=== PATIENT | female | born 1960 | race Caucasian/White ===

== ENCOUNTER 2019-12-21 15:10 | Outpatient (CLI) | payer MEDICAID | END 2019-12-21 15:11 | disposition critical access hospital (66) | LOC: EMS 15:10 | PROVIDERS: ATTEND Surgery | DX: R10.10 Upper abdominal pain, unspecified (principal); R06.00 Dyspnea, unspecified | CPT/HCPCS: A0425; A0427; A0999 ==

== ENCOUNTER 2019-12-21 15:32 | Emergency (ER) | payer MEDICAID ==
--- NOTE | 2019-12-21 15:43 | ED Physician Documentation ---
PD HPI CHEST PAIN - Stated complaint Stated Complaint: CHEST PAIN - History obtained from History obtained from: Patient - History of Present Illness Timing - onset: Enter time (0), Today Timing - onset during: Rest Timing - duration: Hours (2) Timing - details: Abrupt onset, Still present Pain level max: 10 Pain level now: 2 Quality: Pressure, Tightness, Sharp Location: Substernal, Left chest Radiation: Left upper extremity Improved by: Nitro Worsened by: Exertion, Movement, Palpation Associated symptoms: Shortness of air Similar symptoms before: Diagnosis (CAD) Recently seen: Not recently seen - Additional information Additional information: 59 y/o female with history of CAD with stents in 2016 and 2018. Takes nitro for severe pain with relief. Today while getting ready to eat lunch she developed chest pain severe and took nitro with some relief. Review of Systems Constitutional: denies: Fever Eyes: denies: Decreased vision Ears: denies: Ear pain Nose: denies: Congestion Throat: denies: Sore throat Cardiac: reports: Chest pain / pressure. denies: Palpitations, Pedal edema, Calf pain Respiratory: reports: Dyspnea, Cough GI: denies: Abdominal Pain, Nausea, Vomiting : denies: Dysuria, Frequency PD PAST MEDICAL HISTORY - Present Medications Home Medications: Ambulatory Orders Medication Instructions Recorded Confirmed Atorvastatin [Lipitor] 12/21/19 Carvedilol 12/21/19 Nitroglycerin PRN PRN 12/21/19 - Allergies Allergies/Adverse Reactions: Allergies Allergy/AdvReac Type Severity Reaction Status Date / Time No Known Drug Allergies Allergy Verified 12/21/19 15:43 PD ED PE NORMAL - Vitals Vital signs reviewed: Yes - General General: Alert and oriented X 3, No acute distress, Well developed/nourished - HEENT HEENT: Atraumatic, PERRL, EOMI - Neck Neck: Supple, no meningeal sign, No bony TTP - Cardiac Cardiac: RRR, No murmur - Respiratory Respiratory: No respiratory distress, Clear bilaterally, Other (Specific chest wall tenderness over the anterior chest wall over the sternum and parasternal area worse on the left reproducing the pain the patient is having. 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, No motor deficit, No sensory deficit, Normal speech Eye Opening: Spontaneous Motor: Obeys Commands Verbal: Oriented GCS Score: 15 - Psych Psych: Normal mood, Normal affect Results - Vitals Vitals: Vital Signs - 24 hr 12/21/19 12/21/19 12/21/19 15:43 15:47 16:29 Temperature 37 C 37 C 37 C Heart Rate 66 67 65 Respiratory 16 18 18 Rate Blood Pressure 154/82 H 145/84 H 130/73 O2 Saturation 100 100 96 Oxygen O2 Source Room air - EKG (time done) 1534 Rate: Rate (enter#) (66) Rhythm: NSR Ischemia: Normal ST segments Compare to prior EKG: Old EKG unavailable Computer interpretation: Agree with computer - Labs Labs: Laboratory Tests 12/21/19 12/21/19 12/21/19 15:45 15:54 15:54 WBC 6.7 RBC 4.43 Hgb 13.4 Hct 39.7 MCV 89.6 MCH 30.2 MCHC 33.8 RDW 13.9 Plt Count 245 MPV 9.7 Neut # (Auto) 3.7 Lymph # (Auto) 2.2 [place] # (Auto) 0.6 Eos # (Auto) 0.1 Baso # (Auto) 0.0 Absolute Nucleated RBC 0.00 Nucleated RBC % 0.0 Sodium 138 Potassium 4.0 Chloride 105 Carbon Dioxide 21 Anion Gap 12.0 BUN 12 Creatinine 0.9 Estimated GFR (MDRD) 64 L Glucose 102 H Calcium 9.0 Total Bilirubin 0.7 AST 20 ALT 22 Alkaline Phosphatase 55 Troponin I High Sens Total Protein 7.7 Albumin 3.8 Globulin 3.9 Albumin/Globulin Ratio 1.0 Lipase 49 Urine Color YELLOW Urine Clarity CLEAR Urine pH 7.0 Ur Specific Crete 1.010 Urine Protein NEGATIVE Urine Glucose (UA) NEGATIVE Urine Ketones NEGATIVE Urine Occult Blood TRACE-INTA Urine Nitrite NEGATIVE Urine Bilirubin NEGATIVE Urine Urobilinogen 0.2 (NORMAL) Ur Leukocyte Esterase NEGATIVE Ur Microscopic Review NOT INDICATED Urine Culture Comments NOT INDICATED 12/21/19 15:54 WBC RBC Hgb Hct MCV MCH MCHC RDW Plt Count MPV Neut # (Auto) Lymph # (Auto) [place] # (Auto) Eos # (Auto) Baso # (Auto) Absolute Nucleated RBC Nucleated RBC % Sodium Potassium Chloride Carbon Dioxide Anion Gap BUN Creatinine Estimated GFR (MDRD) Glucose Calcium Total Bilirubin AST ALT Alkaline Phosphatase Troponin I High Sens 2.3 Total Protein Albumin Globulin Albumin/Globulin Ratio Lipase Urine Color Urine Clarity Urine pH Ur Specific Crete Urine Protein Urine Glucose (UA) Urine Ketones Urine Occult Blood Urine Nitrite Urine Bilirubin Urine Urobilinogen Ur Leukocyte Esterase Ur Microscopic Review Urine Culture Comments - Rads (name of study) chest Radiology: Prelim report reviewed (Impression: No acute cardiopulmonary process or other significant abnormality demonstrated.), EMP read indepedently, See rad report PD MEDICAL DECISION MAKING - ED course Complexity details: reviewed results, re-evaluated patient, considered differential, d/w patient, d/w family ED course: 59-year-old female with history of early coronary artery disease has developed chest pain that is responsive to nitroglycerin today and is typical for her chest pain.And had relief with nitro sequentially Pain at rest. She did get anxious regarding this pain and paramedics were able to reassure the patient talk her down to improve her hyperventilation. She arrives to the emergency department with a 2 out of 10 chest pain and reproducible chest pain by palpation of the anterior chest wall. She has a history of stents and her coronary disease was discovered on treadmill testing after evaluation for chest pain. She had a 97% lesion to the LAD.Today she has persistent chest wall pain and tenderness and she is administered dexamethasone and Toradol intravenously and a second troponin will be drawn at approximately 1800. At shift change care of the patient is turned over to Dr. Leo Mix. Departure - Departure Clinical Impression: Chest wall pain Condition: Stable
[2019-12-21 16:00] LABS: BASOPHILS % (AUTO) 0.6 %; EOSINOPHILS # (AUTO) 0.1 10^3/uL (0.0-0.7); EOSINOPHILS % (AUTO) 1.6 %; HGB - HEMOGLOBIN 13.4 g/dL (12.0-16.0); LYMPHOCYTES # (AUTO) 2.2 10^3/uL (1.5-3.5); LYMPHOCYTES % (AUTO) 32.5 %; MEAN CORPUSCULAR HEMOGLOBIN 30.2 pg (27.0-31.0); MEAN CORPUSCULAR HGB CONC 33.8 g/dL (32.0-36.0); MEAN CORPUSCULAR VOLUME 89.6 fL (81.0-99.0); MEAN PLATELET VOLUME 9.7 fL (7.9-10.8); MONOCYTES # (AUTO) 0.6 10^3/uL (0.0-1.0); MONOCYTES % (AUTO) 9.1 %; NEUTROPHILS # (AUTO) 3.7 10^3/uL (1.5-6.6); NEUTROPHILS % (AUTO) 55.9 %; PLT - PLATELET COUNT 245 10^3/uL (130-450); RED BLOOD COUNT 4.43 10^6/uL (4.20-5.40); RED CELL DISTRIBUTION WIDTH 13.9 % (12.0-15.0); WHITE BLOOD COUNT 6.7 x10^3/uL (4.8-10.8)
--- NOTE | 2019-12-21 16:04 | XRAY Report ---
PROCEDURE: Chest 1 View X-Ray INDICATIONS: Chest pain TECHNIQUE: One view of the chest was acquired. COMPARISON: None FINDINGS: Surgical changes and devices: None. Lungs and pleura: No pleural effusions or pneumothorax. Lungs are clear. Mediastinum: Mediastinal contours appear normal. Heart size is normal. Bones and chest wall: No suspicious bony lesions. Overlying soft tissues appear unremarkable. IMPRESSION: No acute cardiopulmonary process or other significant abnormality demonstrated. Reviewed by: Gagan Subramanian MD on 12/21/2019 4:02 PM PDT Approved by: Gagan Subramanian MD on 12/21/2019 4:02 PM PDT Station ID: [id number]
[2019-12-21 16:05] LABS: BILIRUBIN,URINE NEGATIVE (NEGATIVE); GLUCOSE, URINE (UA) NEGATIVE (NEGATIVE); KETONES,URINE (UA) NEGATIVE (NEGATIVE); LEUKOCYTE ESTERASE, URINE NEGATIVE (NEGATIVE); NITRITE,URINE NEGATIVE (NEGATIVE); OCCULT BLOOD,URINE TRACE-INTA (NEGATIVE); PROTEIN,URINE NEGATIVE (NEGATIVE); UROBILINOGEN,URINE 0.2 (NORMAL) E.U./dL (NORMAL)
[2019-12-21 16:10] LABS: CLARITY,URINE CLEAR (CLEAR)
[2019-12-21 16:13] LABS: ALBUMIN 3.8 g/dL (3.2-5.5); BILIRUBIN,TOTAL 0.7 mg/dL (0.2-1.0); CREATININE 0.9 mg/dL (0.4-1.0); TOTAL PROTEIN 7.7 g/dL (6.7-8.2)
[2019-12-21] MEDS ORDERED: KETOROLAC 30 MG/ML VIAL IVP STA (16:58)
[2019-12-21] MEDS ORDERED: DEXAMETHASONE 10 MG/ML VIAL IVP STA (16:58)
--- NOTE | 2019-12-21 18:55 | ED Physician Documentation ---
ED Addendum - Addendum Addendum: 12/21/19 18:54 Patient signed out to me by Dr. Leger, briefly this is a 59-year-old woman with a history of coronary disease who presents with very atypical chest pain the Dr. Leger felt was musculoskeletal. She was feeling better on my initial evaluation at shift change a little after 5 PM. Diagnostics were reviewed. Her initial troponin was negative. Her EKG was completely nonischemic. Given her high risk Dr. Leger felt that a second troponin was appropriate and this was done at a 2-hour time interval, and remained low and reassuring. Heart score is 3. Diagnosis atypical chest pain Disposition Home/discharge.
[2019-12-21 18:57] VITALS: BP 126/76
== END 2019-12-21 19:01 | disposition home or self-care (01) ==
LOC: ED 15:32
DX: R07.89 Other chest pain (principal); I25.10 Atherosclerotic heart disease of native coronary artery without angina pectoris
CPT/HCPCS: 36415; 71045; 80053; 81001; 81003; 83690; 84484; 85025; 87086; 93005; 96374; 99284